=== PATIENT | male | born 1975 | race Two or more races ===

== ENCOUNTER 2022-07-24 21:54 | Emergency (ER) | payer OTHER ==
[~2022-07-24] VITALS: Ht 175.3 cm; Wt 70.1 kg
[2022-07-24 23:30] VITALS: BP 129/83
== END 2022-07-25 04:01 | disposition home or self-care (01) ==
LOC: ER 21:54
DX: M54.6 Pain in thoracic spine (principal); I25.2 Old myocardial infarction; R07.89 Other chest pain; Z86.73 Personal history of transient ischemic attack (TIA), and cerebral infarction without residual deficits; Z20.822 Contact with and (suspected) exposure to COVID-19
CPT/HCPCS: 36415; 71046; 84484; 87426; 87804; 93005